=== PATIENT | male | born 2000 | race Caucasian/White ===

== ENCOUNTER 2019-04-15 13:44 | Outpatient (CLI) | payer BC ==
--- NOTE | 2019-04-15 14:20 | RAD ---
EXAM: XR Pelvis AP STANDARD PROVIDED CLINICAL HISTORY: Pain FINDINGS: There is no evidence for fracture or other acute osseous abnormality. Alignment appears anatomic. Trisha nt spaces appear preserved. IMPRESSION: No evidence for an acute osseous abnormality or significant arthropathy.
--- NOTE | 2019-04-15 14:21 | RAD ---
EXAM: XR Tib Fib Rt Leg 2 View PROVIDED CLINICAL HISTORY: Pain FINDINGS: There is no evidence for fracture or other acute osseous abnormality. Alignment appears anatomic. Trisha nt spaces appear preserved. IMPRESSION: No evidence for an acute osseous abnormality. If there is persistent clinical concern, conservative m anagement and follow-up imaging advised.
== END 2019-04-15 13:45 | disposition home or self-care (01) ==
LOC: BICRAD 13:44
PROVIDERS: ATTEND Family Medicine
DX: M79.604 Pain in right leg (principal); M79.605 Pain in left leg
CPT/HCPCS: 36415; 72170; 80053; 83036; 85025; 85652; 86140

== ENCOUNTER 2019-06-06 16:16 | Outpatient (CLI) | payer BC ==
--- NOTE | 2019-06-06 17:47 | RAD ---
PA AND LATERAL VIEWS OF THE CHEST: 06/06/19 HISTORY: Fever. FINDINGS: There are no previous exams or comparison. The cardiomediastinum is normal. The lungs are expanded and clear. The bony thorax is normal. IMPRESSION: Normal exam. POS: OFF
== END 2019-06-06 16:17 | disposition home or self-care (01) ==
LOC: BICRAD 16:16
PROVIDERS: ATTEND Family Medicine
DX: E10.65 Type 1 diabetes mellitus with hyperglycemia (principal); R50.9 Fever, unspecified
CPT/HCPCS: 71046